=== PATIENT | female | born 1985 | race Caucasian/White ===

== ENCOUNTER 2022-12-25 07:08 | Emergency (ER) | payer OTHER ==
[2022-12-25] MEDS ORDERED: Zofran 4 MG/2 ML VIAL IV ONE ×2 (07:41→10:15)
[2022-12-25] MEDS ORDERED: Sodium Chloride 0.9% 1000 ML 1,000 ML IV STA ×2 (07:41→09:23)
[2022-12-25] MEDS ORDERED: Zofran 4 MG/2 ML VIAL ONE ×2 (07:45→10:15)
[2022-12-25] MEDS ORDERED: Sodium Chloride 0.9% 1000 ML 1,000 ML ONE ×2 (07:45→09:25)
--- NOTE | 2022-12-25 07:46 | ERPHSYRPT ---
- History of Present Illness Time Seen by Provider: 12/25/22 07:21 Historian: patient Exam Limitations: no limitations Patient Subjective Stated Complaint: C/O diarrhea for the past 4 days. Denies pain or vomiting. States she is nauseated. Triage Nursing Assessment: Patient ambulated back to ER without difficulties. No SOB. She is alert and oriented. Skin tone normal. Physician History: 37 years old female with history of ulcerative colitis on infusions presented to the ER with chief complaint of diarrhea for last 4 days, patient reports multiple episodes of loose stool with mild generalized cramping and nausea but no vomiting. Denies any hematochezia. No fever or chills reported. Denies any sick contact. Patient feels weak fatigued tired and dehydrated. Timing/Duration: day(s) (4), worse Activities at Onset: rest Quality: cramping Abdominal Pain Onset Location: generalized abdomen Pain Radiation: no radiation Severity of Pain-Max: mild Severity of Pain-Current: none Modifying Factors: Improves With: nothing Associated Symptoms: nausea Previous symptoms: no prior history Allergies/Adverse Reactions: No Known Drug Allergies Allergy (Verified 12/25/22 07:22) Home Medications: Vedolizumab [Entyvio] 300 mg IV DIRECTIONS UNKNOWN 12/25/22 [History] Hx Tetanus, Diphtheria Vaccination/Date Given: Yes Hx Influenza Vaccination/Date Given: Yes Hx Pneumococcal Vaccination/Date Given: No Immunizations Up to Date: Yes Travel Risk - International Travel Have you traveled outside of the country in past 3 weeks: No - Coronavirus Screening Are you exhibiting any of the following symptoms?: No Close contact with a COVID-19 positive Pt in past 14-21 Days: No - Vaccine Status Have you recieved a Covid-19 vaccination: Yes Md Urologist: Unknown - Vaccination Dates Dates if Unknown: ? - Review of Systems Constitutional: Fatigue, Weakness Eyes: No Symptoms Ears, Nose, & Throat: No Symptoms Respiratory: No Symptoms Cardiac: No Symptoms Abdominal/Gastrointestinal: Nausea, Diarrhea Genitourinary Symptoms: No Symptoms Musculoskeletal: No Symptoms Skin: No Symptoms Neurological: No Symptoms Psychological: No Symptoms Endocrine: No Symptoms Hematologic/Lymphatic: No Symptoms Immunological/Allergic: No Symptoms - Past Medical History Pertinent Past Medical History: Yes Neurological History: No Pertinent History ENT History: No Pertinent History Cardiac History: No Pertinent History Respiratory History: No Pertinent History Endocrine Medical History: No Pertinent History Musculoskeletal History: No Pertinent History GI Medical History: Colitis History: No Pertinent History Psycho-Social History: No Pertinent History Female Reproductive Disorders: No Pertinent History Other Medical History: ulcerative colitis - Past Surgical History Past Surgical History: Yes Neuro Surgical History: No Pertinent History Cardiac: No Pertinent History Respiratory: No Pertinent History Gastrointestinal: No Pertinent History Genitourinary: No Pertinent History Musculoskeletal: No Pertinent History Female Surgical History: No Pertinent History Other Surgical History: Colonoscopy, Rectal abcess - Social History Smoking Status: Never smoker Exposure to second hand smoke: No Drug Use: none Patient Lives Alone: No - Female History Hx Last Menstrual Period: One month ago Hx Now: No (Possibility) - Nursing Vital Signs Nursing Vital Signs: Initial Vital Signs Temperature 97.1 F 12/25/22 07:24 Pulse Rate 87 12/25/22 07:24 Respiratory Rate 18 12/25/22 07:24 Blood Pressure 150/110 12/25/22 07:24 O2 Sat by Pulse Oximetry 98 12/25/22 07:24 Pain Scale Pain Intensity 0 - Physical Exam General Appearance: no apparent distress, alert Eye Exam: PERRL/EOMI Ears, Nose, Throat Exam: normal ENT inspection Neck Exam: normal inspection, full range of motion Respiratory Exam: normal breath sounds, lungs clear Cardiovascular Exam: regular rate/rhythm, normal heart sounds Gastrointestinal/Abdomen Exam: soft, normal bowel sounds, No tenderness, No d istention, No guarding Back Exam: normal inspection, normal range of motion Neurologic Exam: alert, oriented x 3, cooperative Skin Exam: normal color SpO2 Interpretation: normal SpO2: 98 O2 Delivery: Room Air Ordered Tests: Active Orders 24 hr Category Date Time Status IV Insertion STAT Care 12/25/22 07:41 Active CBC W DIFF Stat Lab 12/25/22 07:30 Completed CMP Stat Lab 12/25/22 07:30 Completed CULTURE,URINE Stat Lab 12/25/22 07:43 Received HCG QUALITATIVE, URINE Stat Lab 12/25/22 07:43 Completed LIPASE Stat Lab 12/25/22 07:30 Completed UA W/RFX UR CULTURE Stat Lab 12/25/22 07:43 Completed Medication Summary Discontinued Medications Generic Name Dose Route Start Last Admin Trade Name Freq PRN Reason Stop Dose Admin Sodium Chloride 1,000 mls @ 999 mls/hr 12/25/22 07:41 12/25/22 08:53 Sodium Chloride 0.9% 1000 Ml IV 12/25/22 08:41 Infused .Q1H1M STA Infusion Sodium Chloride Confirm 12/25/22 07:45 Sodium Chloride 0.9% 1000 Ml Administered 12/25/22 07:46 Dose 1,000 mls @ ud .ROUTE .STK-MED ONE Sodium Chloride 1,000 mls @ 999 mls/hr 12/25/22 09:23 12/25/22 10:33 Sodium Chloride 0.9% 1000 Ml IV 12/25/22 10:23 Infused .Q1H1M STA Infusion Sodium Chloride Confirm 12/25/22 09:25 Sodium Chloride 0.9% 1000 Ml Administered 12/25/22 09:26 Dose 1,000 mls @ ud .ROUTE .STK-MED ONE Ondansetron HCl 4 mg 12/25/22 07:41 12/25/22 07:46 Ondansetron Hcl 4 Mg/2 Ml Vial IV 12/25/22 07:42 4 mg STAT ONE Administration Ondansetron HCl Confirm 12/25/22 07:45 Ondansetron Hcl 4 Mg/2 Ml Vial Administered 12/25/22 07:46 Dose 4 mg .ROUTE .STK-MED ONE Ondansetron HCl 4 mg 12/25/22 10:15 12/25/22 10:16 Ondansetron Hcl 4 Mg/2 Ml Vial IV 12/25/22 10:16 4 mg STAT ONE Administration Ondansetron HCl Confirm 12/25/22 10:15 Ondansetron Hcl 4 Mg/2 Ml Vial Administered 12/25/22 10:16 Dose 4 mg .ROUTE .STK-MED ONE Lab/Rad Data: Laboratory Result Diagrams 12/25/22 07:30 12/25/22 07:30 Laboratory Results 12/25/22 12/25/22 12/25/22 Range/Units 09:29 07:43 07:43 WBC (4.0-10.5) x10^3/uL RBC (4.1-5.4) x10^6/uL Hgb (12.0-16.0) g/dL Hct (35-47) % MCV (78-100) fL MCH (26-32) pg MCHC (32-36) g/dL RDW (11.5-14.0) % Plt Count (150-450) x10^3/uL MPV (7.5-11.0) fL Gran % (36.0-66.0) % Immature Gran % (Auto) (0.00-0.4) % Nucleat RBC Rel Count (0.00-0.1) % Eos # (Auto) (0-0.5) x10^3/uL Immature Gran # (Auto) (0.00-0.03) x10^3u/L Absolute Lymphs (auto) (1.0-4.6) x10^3/uL Absolute Monos (auto) (0.0-1.3) x10^3/uL Absolute Nucleated RBC (0.00-0.01) x10^3u/L Lymphocytes % (24.0-44.0) % Monocytes % (0.0-12.0) % Eosinophils % (0.00-5.0) % Basophils % (0.0-0.4) % Absolute Granulocytes (1.4-6.9) x10^3/uL Basophils # (0-0.4) x10^3/uL Sodium (137-145) mmol/L Potassium (3.5-5.1) mmol/L Chloride (98-107) mmol/L Carbon Dioxide (22-30) mmol/L Anion Gap (5-15) MEQ/L BUN (7-17) mg/dL Creatinine (0.52-1.04) mg/dL Estimated GFR ML/MIN Glucose (74-106) mg/dL Calcium (8.4-10.2) mg/dL Total Bilirubin (0.2-1.3) mg/dL AST (14-36) U/L ALT (0-35) U/L Alkaline Phosphatase (38-126) U/L Serum Total Protein (6.3-8.2) g/dL Albumin (3.5-5.0) g/dL Lipase (23-300) U/L Urine Color Yellow (Yellow) Urine Appearance Turbid A (Clear) Urine pH 6.0 (4.6-8.0) Ur Specific [place] >=1.030 A (1.005-1.030) Urine Protein >=1000 A (Negative) Urine Glucose (UA) Negative (Negative) mg/dL Urine Ketones Negative (Negative) Urine Blood Large A (Negative) Urine Nitrite Negative (Negative) Urine Bilirubin Negative (Negative) Urine Urobilinogen 1.0 A (0.2) mg/dL Ur Leukocyte Esterase Small A (Negative) U Hyaline Cast (Auto) 6-10 A (0-2) /LPF Urine Microscopic RBC 51-100 A (0-5) /HPF Urine Microscopic WBC 21-50 A (0-5) /HPF Ur Epithelial Cells Many A (None Seen) /HPF Urine Bacteria Many A (None Seen) /HPF Urine Culture Reflexed YES (NO) Urine HCG, Qual NEGATIVE (NEGATIVE) C. difficile Screen NEGATIVE (NEGATIVE) C.difficile 027-[id number] PRESUMPTIVE NEGATIVE (NEGATIVE) 12/25/22 12/25/22 Range/Units 07:30 07:30 WBC 9.5 (4.0-10.5) x10^3/uL RBC 5.77 H (4.1-5.4) x10^6/uL Hgb 16.0 (12.0-16.0) g/dL Hct 47.8 H (35-47) % MCV 82.8 (78-100) fL MCH 27.7 (26-32) pg MCHC 33.5 (32-36) g/dL RDW 12.6 (11.5-14.0) % Plt Count 429 (150-450) x10^3/uL MPV 9.6 (7.5-11.0) fL Gran % 51.2 (36.0-66.0) % Immature Gran % (Auto) 0.1 (0.00-0.4) % Nucleat RBC Rel Count 0.0 (0.00-0.1) % Eos # (Auto) 0.07 (0-0.5) x10^3/uL Immature Gran # (Auto) 0.01 (0.00-0.03) x10^3u/L Absolute Lymphs (auto) 3.43 (1.0-4.6) x10^3/uL Absolute Monos (auto) 1.08 (0.0-1.3) x10^3/uL Absolute Nucleated RBC 0.00 (0.00-0.01) x10^3u/L Lymphocytes % 36.1 (24.0-44.0) % Monocytes % 11.4 (0.0-12.0) % Eosinophils % 0.7 (0.00-5.0) % Basophils % 0.5 (0.0-0.4) % Absolute Granulocytes 4.85 (1.4-6.9) x10^3/uL Basophils # 0.05 (0-0.4) x10^3/uL Sodium 137 (137-145) mmol/L Potassium 3.4 L (3.5-5.1) mmol/L Chloride 104 (98-107) mmol/L Carbon Dioxide 15 L* (22-30) mmol/L Anion Gap 21.1 H (5-15) MEQ/L BUN 19 H (7-17) mg/dL Creatinine 0.68 (0.52-1.04) mg/dL Estimated GFR > 60.0 ML/MIN Glucose 126 H (74-106) mg/dL Calcium 8.3 L (8.4-10.2) mg/dL Total Bilirubin 0.60 (0.2-1.3) mg/dL AST 45 H (14-36) U/L ALT 40 H (0-35) U/L Alkaline Phosphatase 86 (38-126) U/L Serum Total Protein 8.9 H (6.3-8.2) g/dL Albumin 4.7 (3.5-5.0) g/dL Lipase 222 (23-300) U/L Urine Color (Yellow) Urine Appearance (Clear) Urine pH (4.6-8.0) Ur Specific [place] (1.005-1.030) Urine Protein (Negative) Urine Glucose (UA) (Negative) mg/dL Urine Ketones (Negative) Urine Blood (Negative) Urine Nitrite (Negative) Urine Bilirubin (Negative) Urine Urobilinogen (0.2) mg/dL Ur Leukocyte Esterase (Negative) U Hyaline Cast (Auto) (0-2) /LPF Urine Microscopic RBC (0-5) /HPF Urine Microscopic WBC (0-5) /HPF Ur Epithelial Cells (None Seen) /HPF Urine Bacteria (None Seen) /HPF Urine Culture Reflexed (NO) Urine HCG, Qual (NEGATIVE) C. difficile Screen (NEGATIVE) C.difficile 027-[id number] (NEGATIVE) - Progress Progress: improved, re-examined Progress Note: 12/25/22 07:45 37 years old female with history of ulcerative colitis on infusions presented to the ER with chief complaint of diarrhea for last 4 days, patient reports multiple episodes of loose stool with mild generalized cramping and nausea but no vomiting. Denies any hematochezia. No fever or chills reported. Denies any sick contact. Patient feels weak fatigued tired and dehydrated. Patient has abdominal exam soft nontender with mildly hyperactive bowel sounds. Nontoxic appearance, will give fluids, Zofran and baseline labs including C. difficile as patient does have history of C. difficile in the remote past. Do not think patient needs CT abdomen pelvis with this exam. 12/25/22 10:54 Work-up showed normal white count, chemistries consistent with significant dehydration, given 2 boluses of IV fluids and does not have any more episode of diarrhea. Also has a negative C. difficile. Abdominal exam on reevaluation is nonsurgical. I believe patient has viral gastroenteritis, recommended supportive care and will give Zofran to take as needed for some nausea. Do not think she needs any further work-up and is stable for discharge. Counseled pt/family regarding: lab results, diagnosis, need for follow-up, rad results Medical Desision Making - Diagnostic Testing Diagnostic test were ordered, analyzed, and reviewed by me: Yes - Risk of complications The pt has a mod risk of morbidity or mortality based on: Need for prescription drug management - Departure Departure Disposition: Home Clinical Impression: Gastroenteritis, Ulcerative colitis, chronic Condition: Stable Critical Care Time: No Referrals: FORTINO SAUNDERS MD [Primary Care Provider] - Follow up with PCP 1 day Instructions: Diarrhea and Travelers' Diarrhea, Adult (DC) Additional Instructions: Drink plenty of fluids to keep yourself well-hydrated. Follow-up with primary care physician for reevaluation in 1 to 2 days. Return to ER for intractable pain/diarrhea/vomiting/fever chills etc. Prescriptions: Ondansetron ODT 4 MG [Zofran Odt 4 mg] 1 ea PO QIDPRN PRN #7 tablet PRN Reason: n/v
[2022-12-25 07:50] LABS: Absolute Neutrophil Ct (ANC) 4.85 x10^3/uL (1.4-6.9); BASOPHIL % 0.5 % (0.0-0.4); Basophil (Absolute #) 0.05 x10^3/uL (0-0.4); Eosinophil % 0.7 % (0.00-5.0); Eosinophil (Absolute #) 0.07 x10^3/uL (0-0.5); Hematocrit 47.8 % (35-47); IMMATURE GRAN # 0.01 x10^3u/L (0.00-0.03); IMMATURE GRAN % 0.1 % (0.00-0.4); Lymphocyte (Absolute #) 3.43 x10^3/uL (1.0-4.6); Lymphocytes % 36.1 % (24.0-44.0); Mean Cell Volume 82.8 fL (78-100); Mean Corpuscular Hemoglobin 27.7 pg (26-32); Mean Corpuscular Hgb Concent. 33.5 g/dL (32-36); Mean Platelet Volume 9.6 fL (7.5-11.0); Monocyte (Absolute #) 1.08 x10^3/uL (0.0-1.3); Monocytes % 11.4 % (0.0-12.0); Neutrophil % 51.2 % (36.0-66.0); Platelet Count 429 x10^3/uL (150-450); Red Blood Count 5.77 x10^6/uL (4.1-5.4); Red Cell Distribution Width 12.6 % (11.5-14.0); White Blood Count 9.5 x10^3/uL (4.0-10.5)
[2022-12-25 07:51] LABS: HCG URINE TEST NEGATIVE (NEGATIVE)
[2022-12-25 07:59] LABS: ALBUMIN 4.7 g/dL (3.5-5.0); ALKALINE PHOSPHATASE 86 U/L (38-126); ANION GAP 21.1 MEQ/L (5-15); BLOOD UREA NITROGEN 19 mg/dL (7-17); CHLORIDE 104 mmol/L (98-107); Calcium 8.3 mg/dL (8.4-10.2); Creatinine 1 0.68 mg/dL (0.52-1.04); EST GLOMERULAR FILTRATION RATE > 60.0 ML/MIN; Glucose 126 mg/dL (74-106); LIPASE 222 U/L (23-300); Potassium 3.4 mmol/L (3.5-5.1); SGOT/AST 45 U/L (14-36); SGPT/ALT 40 U/L (0-35); SODIUM 137 mmol/L (137-145)
[2022-12-25 08:02] LABS: Total Protein 8.9 g/dL (6.3-8.2)
[2022-12-25 08:02] LABS: Appearance Turbid (Clear); Bacteria Many /HPF (None Seen); Bilirubin Negative (Negative); Blood Large (Negative); Epithelial Cells Many /HPF (None Seen); Glucose, Urine Negative (Negative); Ketones Negative (Negative); Leukocyte Esterase Small (Negative); Nitrite Negative (Negative); Protein,Urine Dip >=1000 (Negative); RBC 51-100 /HPF (0-5); Specific Gravity >=1.030 (1.005-1.030); WBC 21-50 /HPF (0-5)
[2022-12-25 08:03] LABS: Carbon Dioxide 15 mmol/L (22-30)
[2022-12-25 08:03] LABS: ADD URINE CULTURE? YES (NO)
[2022-12-25 10:11] LABS: 027 TOX PROD PRESUMPTIVE NEGATIVE (NEGATIVE); TOXIGENIC C. DIFF ORG NEGATIVE (NEGATIVE)
[2022-12-25 10:56] VITALS: O2SAT 98
[2022-12-25 12:00] VITALS: BP 133/80; PULSE 82
[2022-12-27 13:08] LABS: Adenovirus F40/41 Not Detected (Not Detected); Astrovirus Not Detected (Not Detected); Campylobacter Not Detected (Not Detected); Cryptosporidium Not Detected (Not Detected); Cyclospora cayetanensis Not Detected (Not Detected); Entamoeba histolytica Not Detected (Not Detected); Enteroaggregative E coli Not Detected (Not Detected); Enterpathogenic E coli Not Detected (Not Detected); Entertoxigenic E coli Not Detected (Not Detected); Giardia lamblia Not Detected (Not Detected); Norovirus GI/GII Not Detected (Not Detected); Plesiomonas shigelloides Not Detected (Not Detected); Rotavirus A Detected (Not Detected); Salmonella Not Detected (Not Detected); Shig-toxin-producing E coli Not Detected (Not Detected); Shigella/Enterinvasive E coli Not Detected (Not Detected); Vibrio Not Detected (Not Detected); Vibrio cholerae Not Detected (Not Detected); Yersinia enterocolitica Not Detected (Not Detected)
[2022-12-27 13:14] LABS: Sapovirus Not Detected (Not Detected)
== END 2022-12-25 12:10 | disposition home or self-care (01) ==
LOC: ED 07:08
DX: K52.9 Noninfective gastroenteritis and colitis, unspecified (principal); K51.90 Ulcerative colitis, unspecified, without complications; R10.9 Unspecified abdominal pain; R11.0 Nausea; R53.1 Weakness; R53.83 Other fatigue; Z79.899 Other long term (current) drug therapy
CPT/HCPCS: 36000; 36415; 80053; 81001; 81025; 83690; 85025; 87086; 87493; 87507; 96374; 96376; 99284; 99291; J2405